=== PATIENT | female | born 1995 | race Caucasian/White ===

== ENCOUNTER 2016-04-29 07:21 | Emergency (ER) | payer OTHER ==
[~2016-04-29] VITALS: Ht 162.6 cm; Wt 97.9 kg
[2016-04-29 07:24] VITALS: BP 123/70; PULSE 82; RESP 16; TEMP 98.6; O2SAT 100
[2016-04-29] MEDS ORDERED: IBUPROFEN 600 MG TAB PO ONE (08:30)
--- NOTE | 2016-04-29 08:36 | PD ---
HPI Chief Complaint: Pain: Acute or Chronic Time Seen by Provider: 08:13 Travel History International Travel<30 days: No Contact w/Intl Traveler<30days: No Traveled to known affect area: No History of Present Illness HPI Patient is a 20 year old female who comes in complaining of pain to both of her hands for 4 months. 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 She has tried taking Tylenol for pain, but says it does not help much. She says her significant other who works at the same job was having the same issue a few months ago and was given hand splints and a note for work and now is feeling better. She denies any injuries to her hands. She denies numbness or tingling to her hands. PFS Past Medical History Asthma: Yes Cancer: No Cardiovascular Problems: No Diabetes: No Diminished Hearing: No Gastrointestinal Disorders: Yes (gallstones 02/2015) Genitourinary: No Hepatitis: No Hiatal Hernia: No Hypertension: No Immune Disorder: No Inguinal Hernia: Yes Medical other: No Musculoskeletal: Yes (SPINAL DEFORMITY AT ) Neurologic: Yes (EPILEPSY-HAVENT HAD SEIZURE IN YEARS) Psychiatric: No Reproductive: No Respiratory: Yes (ASTHMA) Immunizations Current: Yes Seizures: Yes Thyroid Disease: No Tetanus Vaccination: < 5 Years ?: Not : 0 Past Surgical History Abdominal Surgery: Yes (HERNIA REPAIR ) AICD: No Cholecystectomy: Yes Joint Replacement: No Pacemaker: No Other Surgery: Yes Social History Alcohol Use: Yes (RARELY) Tobacco Use: Yes (1/2 PPD) Substance Use: No Allergies-Medications (Allergen,Severity, Reaction): Coded Allergies: Phenobarbital (Verified Allergy, Severe, HIVES, 06/13/15) Reported Meds & Prescriptions Reported Meds & Active Scripts Active Active Prescriptions or Reported Medications Unobtainable Review of Systems General / Constitutional: No: Fever, Chills HENT: No: Headaches Cardiovascular: No: Chest Pain or Discomfort Gastrointestinal: No: Nausea, Vomiting Musculoskeletal: Positive: Myalgias, Arthralgias Skin: No Change in Pigmentation Neurologic: No: Paresthesia, Sensory Disturbance Physical Exam Narrative GENERAL: Awake and alert in no acute distress SKIN: Warm and dry. HEAD: Atraumatic. Normocephalic. EYES: Pupils equal and round. No scleral icterus. NECK: Trachea midline. No JVD. CARDIOVASCULAR: Regular rate and rhythm. No murmur appreciated. RESPIRATORY: No accessory muscle use. Clear to auscultation. Breath sounds equal bilaterally. MUSCULOSKELETAL: No obvious deformities. No clubbing. No cyanosis. No edema. Radial pulses intact. Pain with wrist movement bilaterally. NEUROLOGICAL: Awake and alert. No obvious cranial nerve deficits. Motor grossly within normal limits. Normal speech. Radial, ulnar, median nerve intact. Data Data Last Documented VS Vital Signs Date Time Temp Pulse Resp B/P Pulse Ox O2 Delivery O2 Flow Rate FiO2 04/29/16 07:24 98.6 82 16 123/70 100 Orders Ibuprofen (Motrin) (04/29/16 08:30) Splint Or Brace Apply/Monitor (04/29/16 08:29) [facility] Medical Decision Making Medical Screen Exam Complete: Yes Emergency Medical Condition: Yes Medical Record Reviewed: Yes Differential Diagnosis Tendinitis versus carpal tunnel syndrome versus wrist sprain Narrative Course Patient is a 20-year-old female comes in complaining of bilateral hand pain for a few months. Exam shows pain with movement of her fingers and wrist. Pain is likely secondary to tendinitis and overuse of her hands. Patient given ibuprofen. Advised to take Ativan as needed for pain. Given 2 below wrist splints, advised to wear these as needed for pain. Advised follow-up with her primary care doctor. Advised to return to the ED as needed for any worsening symptoms. Diagnosis Primary Impression: Tendonitis Patient Instructions: General Instructions, Tendinitis (ED) Additional Instructions: Follow up with a primary care physician. Return to the ED as needed for any worsening symptoms. Wear the splints for comfort. Take Ibuprofen as needed for pain. Scripts No Active Prescriptions or Reported Meds Disposition: 01 DISCHARGE HOME Condition: Stable Sara Hogan MD Apr 29, 2016 08:36
== END 2016-04-29 08:52 | disposition home or self-care (01) ==
LOC: PHED 07:21 → PHEFT 08:52
DX: M77.9 Enthesopathy, unspecified (principal); M79.642 Pain in left hand; M79.641 Pain in right hand; F17.200 Nicotine dependence, unspecified, uncomplicated; Z87.09 Personal history of other diseases of the respiratory system; Z87.19 Personal history of other diseases of the digestive system; Z87.39 Personal history of other diseases of the musculoskeletal system and connective tissue; Z86.69 Personal history of other diseases of the nervous system and sense organs
CPT/HCPCS: 99283; L3908

== ENCOUNTER 2016-09-22 19:34 | Emergency (ER) | payer OTHER ==
[~2016-09-22] VITALS: Ht 162.6 cm; Wt 96.6 kg
[2016-09-22 19:38] VITALS: BP 125/79; PULSE 94; RESP 16; TEMP 98.1; O2SAT 99
--- NOTE | 2016-09-22 20:01 | PD ---
HPI Chief Complaint: Pain: Acute or Chronic Time Seen by Provider: 19:45 Travel History International Travel<30 days: No Contact w/Intl Traveler<30days: No Traveled to known affect area: No History of Present Illness HPI 21-year-old female presents to the emergency room for evaluation of right wrist pain that has been ongoing for the past several months but worsened yesterday. Patient denies trauma or injury. States she has history of tendinitis from overusing her wrist at work. Patient types all day. States she was seen in the ER previously for this and given splints which have been helping until last night. Pain is localized to the volar right wrist with radiation up her arm. Pain is worse with range of motion and palpation. She to Tylenol and Motrin last night without any relief in symptoms. Denies paresthesias. She has not followed up with primary care physician or orthopedic physician for this issue. PFSH Past Medical History Asthma: Yes Cancer: No Cardiovascular Problems: No Diabetes: No Diminished Hearing: No Gastrointestinal Disorders: Yes (gallstones 02/2015) Genitourinary: No Hepatitis: No Hiatal Hernia: No Hypertension: No Immune Disorder: No Inguinal Hernia: Yes Musculoskeletal: Yes (SPINAL DEFORMITY AT ) Neurologic: Yes (EPILEPSY-HAVENT HAD SEIZURE IN YEARS) Psychiatric: No Reproductive: No Respiratory: Yes (ASTHMA) Immunizations Current: Yes Seizures: Yes (7 RS SINCE LAST) Thyroid Disease: No Tetanus Vaccination: < 5 Years Influenza Vaccination: No ?: Not LMP: 05-18-17 : 0 Past Surgical History Abdominal Surgery: Yes (HERNIA REPAIR INFANT) AICD: No Cholecystectomy: Yes Joint Replacement: No Pacemaker: No Other Surgery: Yes Social History Alcohol Use: Yes (RARELY) Tobacco Use: Yes (1/2 PK) Substance Use: No Allergies-Medications (Allergen,Severity, Reaction): Coded Allergies: Phenobarbital (Verified Allergy, Severe, HIVES, 09/22/16) Reported Meds & Prescriptions Reported Meds & Active Scripts Active No Active Prescriptions or Reported Medications Review of Systems Except as stated in HPI: all other systems reviewed are Neg Physical Exam Narrative GENERAL: Well-nourished, well-developed female in no acute distress. Afebrile. Ambulatory. SKIN: Focused skin assessment warm/dry. No erythema or ecchymosis. HEAD: Normocephalic. EYES: No scleral icterus. No injection or drainage. NECK: Supple, trachea midline. No JVD or lymphadenopathy. CARDIOVASCULAR: Regular rate and rhythm without murmurs, gallops, or rubs. RESPIRATORY: Breath sounds equal bilaterally. No accessory muscle use. EXTREMITY: Right wrist tender to palpation on the volar aspect. Limited range of motion in the wrist secondary to pain. No edema. Normal opposition of thumb. Distal extremity neurovascularly intact with intact two point discrimination. Negative Tinel and Phalen sign. Data Data Last Documented VS Vital Signs Date Time Temp Pulse Resp B/P Pulse Ox O2 Delivery O2 Flow Rate FiO2 09/22/16 19:45 09/22/16 19:38 98.1 94 16 99 Room Air MDM Medical Decision Making Medical Screen Exam Complete: Yes Emergency Medical Condition: Yes Medical Record Reviewed: Yes Differential Diagnosis Tendinitis, carpal tunnel syndrome, tenosynovitis Narrative Course 21-year-old female presents to the emergency room for evaluation of right wrist pain from overuse injury for the past several months that worsened tonight without any trauma or injury. Patient was seen for this previously and has not followed up with a primary care physician or orthopedic surgeon. Physical exam is unremarkable. Extreme tenderness to palpation over the volar right wrist. No erythema, ecchymosis, or edema. 2+ radial pulse. Radial, ulnar, and median nerve intact. Patient was told to follow-up with an orthopedic surgeon for intra-articular steroid injections and possible surgery if symptoms persist. Will return for urgent/emergent conditions. She understands and agrees to plan. Diagnosis Primary Impression: Tendonitis Referrals: Primary Care Physician Patient Instructions: General Instructions, Tendinitis (ED) Additional Instructions: Rest and drink plenty of fluids. Use splint as needed for pain. Take ibuprofen with food as directed, as needed for pain. Apply ice to the affected area for 20 minutes at a time, as needed for pain and swelling. Follow-up with a primary care physician. Return to the emergency room for worsening symptoms. Scripts No Active Prescriptions or Reported Meds Disposition: 01 DISCHARGE HOME Condition: Stable Lizzeth Angela Sep 22, 2016 20:01
[2016-09-22] MEDS ORDERED: IBUP-232 PO (20:13)
== END 2016-09-22 20:22 | disposition home or self-care (01) ==
LOC: PHEFT 19:34
DX: M77.9 Enthesopathy, unspecified (principal); J45.909 Unspecified asthma, uncomplicated; F17.210 Nicotine dependence, cigarettes, uncomplicated
CPT/HCPCS: 99283

== ENCOUNTER 2016-12-22 08:14 | Emergency (ER) | payer OTHER ==
[~2016-12-22 08:14] MED LIST: IBUP-232 PO
[2016-12-22 08:16] VITALS: BP 122/68; PULSE 92; RESP 16; TEMP 98.3; O2SAT 98
--- NOTE | 2016-12-22 08:37 | PD ---
HPI Chief Complaint: Musculoskeletal Complaint Time Seen by Provider: 08:22 Travel History International Travel<30 days: No Contact w/Intl Traveler<30days: No Traveled to known affect area: No History of Present Illness HPI Patient is a 21-year-old female who presents to emergency room for evaluation of bilateral hip and leg cramping. She reports that for the past 3 days, she has been having intermittent cramping to her calves bilaterally. Reports that she has been trying to keep up with electrolytes and has been taking plenty of water, patient reports concern that a UTI may be causing this. Patient also complains of bilateral hip pain with ambulation, denies any trauma, denies any fever/chills. Patient denies any chest pain or shortness of breath, denies any recent travels/trips. Denies history of PE/DVT. No other c/o. PFSH Past Medical History Asthma: Yes Cancer: No Cardiovascular Problems: No Diabetes: No Diminished Hearing: No Gastrointestinal Disorders: Yes (gallstones 02/2015) Genitourinary: No Hepatitis: No Hiatal Hernia: No Hypertension: No Immune Disorder: No Inguinal Hernia: Yes Musculoskeletal: Yes (SPINAL DEFORMITY AT ) Neurologic: Yes (EPILEPSY-HAVENT HAD SEIZURE IN YEARS) Psychiatric: No Reproductive: No Respiratory: Yes (ASTHMA) Immunizations Current: Yes Seizures: Yes (7 RS SINCE LAST) Thyroid Disease: No Influenza Vaccination: No ?: Unknown LMP: 09/2016 : 0 Past Surgical History Abdominal Surgery: Yes (HERNIA REPAIR INFANT) AICD: No Cholecystectomy: Yes Joint Replacement: No Pacemaker: No Other Surgery: Yes Social History Alcohol Use: Yes (RARELY) Tobacco Use: No Substance Use: No Allergies-Medications (Allergen,Severity, Reaction): Coded Allergies: phenobarbital (Unverified Allergy, Severe, HIVES, 12/22/16) Reported Meds & Prescriptions Reported Meds & Active Scripts Active Ibuprofen 600 Mg Tab 600 Mg PO Q6H PRN Review of Systems General / Constitutional: No: Fever Eyes: No: Visual changes HENT: No: Headaches Cardiovascular: No: Chest Pain or Discomfort Respiratory: No: Shortness of Breath Gastrointestinal: No: Abdominal Pain Genitourinary: No: Dysuria Musculoskeletal: Positive: Cramping, No: Pain Skin: No Rash Neurologic: No: Weakness Psychiatric: No: Depression Endocrine: No: Polydipsia Hematologic/Lymphatic: No: Easy Bruising Physical Exam Narrative GENERAL: Well-nourished, well-developed patient. SKIN: Focused skin assessment warm/dry. HEAD: Normocephalic. EYES: No scleral icterus. No injection or drainage. NECK: Supple, trachea midline. No JVD or lymphadenopathy. CARDIOVASCULAR: Regular rate and rhythm without murmurs, gallops, or rubs. RESPIRATORY: Breath sounds equal bilaterally. No accessory muscle use. GASTROINTESTINAL: Abdomen soft, non-tender, nondistended. MUSCULOSKELETAL: No cyanosis, or edema. Patient with normal range of motion to all extremities, patient ambulating the emergency room with normal gait, patient with negative Homans sign BACK: Nontender without obvious deformity. No CVA tenderness. Data Data Last Documented VS Vital Signs Date Time Temp Pulse Resp B/P (MAP) Pulse Ox O2 Delivery O2 Flow Rate FiO2 12/22/16 08:16 98.3 92 16 122/68 (86) 98 Orders Orders Ed Urine Pregnancytest Poc (12/22/16 08:22) Basic Metabolic Panel (Bmp) (12/22/16 08:30) Urinalysis - C+S If Indicated (12/22/16 08:30) Creatine Kinase (Cpk) (12/22/16 08:30) Ibuprofen (Motrin) (12/22/16 08:45) Labs Laboratory Tests Test 12/22/16 08:25 12/22/16 08:35 Urine Collection Type CLEAN CATCH Urine Color YELLOW Urine Turbidity SLIGHT Urine pH 6.0 Urine Specific [place] 1.021 Urine Protein NEG mg/dL Urine Glucose (UA) NEG mg/dL Urine Ketones NEG mg/dL Urine Occult Blood NEG Urine Nitrite NEG Urine Bilirubin NEG Urine Leukocyte Esterase NEG Urine Squamous Epithelial Cells 6-8 /hpf Urine Amorphous Sediment MOD Microscopic Urinalysis Comment CULT NOT INDICATED Urine Collection Time 0828 Blood Urea Nitrogen 11 MG/DL Creatinine 0.78 MG/DL Random Glucose 92 MG/DL Calcium Level 8.7 MG/DL Sodium Level 138 MEQ/L Potassium Level 4.0 MEQ/L Chloride Level 108 MEQ/L Carbon Dioxide Level 22.5 MEQ/L Anion Gap 8 MEQ/L Estimat Glomerular Filtration Rate 92 ML/MIN Total Creatine Kinase 68 U/L MDM Medical Decision Making Medical Screen Exam Complete: Yes Emergency Medical Condition: Yes Interpretation(s) Vital Signs Date Time Temp Pulse Resp B/P (MAP) Pulse Ox O2 Delivery O2 Flow Rate FiO2 12/22/16 08:16 98.3 92 16 122/68 (86) 98 Differential Diagnosis Differential includes electrolyte abnormality, UTI, arthritis, DVT though unlikely as patient has no risk factors Narrative Course 21-year-old female who presents to emergency room for complaints of intermittent leg cramping b/l as well as possible UTI. Reports that symptoms have been ongoing and intermittent for the past few days. Patient request that her electrolytes be checked and that she be checked for a UTI Patient with no chest pain or shortness of breath, no history of PE or DVT. She currently is not on control this time. She is not tachycardic or hypoxic, patient low risk for PE or DVT BMP and ck total and ua ordered. Laboratory Tests Test 12/22/16 08:25 12/22/16 08:35 Urine Collection Type CLEAN CATCH Urine Color YELLOW (YELLW/STRAW) Urine Turbidity SLIGHT (CLEAR) Urine pH 6.0 (5.0-8.5) Urine Specific [place] 1.021 (1.002-1.035) Urine Protein NEG mg/dL (NEG-TRACE) Urine Glucose (UA) NEG mg/dL (NEG) Urine Ketones NEG mg/dL (NEG) Urine Occult Blood NEG (NEG) Urine Nitrite NEG (NEG) Urine Bilirubin NEG (NEG) Urine Leukocyte Esterase NEG (NEG) Urine Squamous Epithelial Cells 6-8 /hpf (0-5) Urine Amorphous Sediment MOD Microscopic Urinalysis Comment CULT NOT INDICATED Urine Collection Time 0828 Blood Urea Nitrogen 11 MG/DL (7-18) Creatinine 0.78 MG/DL (0.50-1.00) Random Glucose 92 MG/DL (74-106) Calcium Level 8.7 MG/DL (8.5-10.1) Sodium Level 138 MEQ/L (136-145) Potassium Level 4.0 MEQ/L (3.5-5.1) Chloride Level 108 MEQ/L (98-107) Carbon Dioxide Level 22.5 MEQ/L (21.0-32.0) Anion Gap 8 MEQ/L (5-15) Estimat Glomerular Filtration Rate 92 ML/MIN (>89) Total Creatine Kinase 68 U/L (26-192) I reviewed all labs and studies with patient in detail, discussed need for stretching her calf muscles. She will follow up with her pcp and will return to ER as needed Diagnosis Primary Impression: Leg cramping Patient Instructions: General Instructions Additional Instructions: Please follow up with your primary care doctor Return to ER as needed or if symptoms return Med/Other Pt SpecificInfo: Prescription(s) given Scripts Ibuprofen (Ibuprofen) 600 Mg Tab 600 MG PO Q6H Y for Pain/Inflammation, #40 TAB 0 Refills Prov: Fabi George DO 12/22/16 Disposition: 01 DISCHARGE HOME Condition: Stable Fabi George DO Dec 22, 2016 08:37
[2016-12-22 08:41] LABS: BLOOD, URINE NEG (NEG); GLUCOSE,URINE NEG (NEG); KETONE, URINE NEG (NEG); NITRITE,URINE NEG (NEG)
[2016-12-22 08:45] LABS: METHOD OF COLLECTION CLEAN CATCH; URINE COLOR YELLOW (YELLW/STRAW)
[2016-12-22] MEDS ORDERED: IBUPROFEN 600 MG TAB PO ONE (08:45)
[2016-12-22 08:46] LABS: COMMENT (UR) CULT NOT INDICATED; CULTURE IF INDICATED CULT NOT INDICATED
[2016-12-22] MEDS ORDERED: IBUP-232 PO (08:51)
[2016-12-22 08:52] LABS: BICARBONATE 22.5 MEQ/L (21.0-32.0)
== END 2016-12-22 09:09 | disposition home or self-care (01) ==
LOC: PHED 08:14
DX: R25.2 Cramp and spasm (principal)
CPT/HCPCS: 80048; 81001; 82550; 84703; 99283

== ENCOUNTER 2017-03-25 13:59 | Emergency (ER) | payer OTHER ==
[~2017-03-25] VITALS: Ht 162.6 cm; Wt 103.0 kg
[2017-03-25 14:06] VITALS: BP 113/66; PULSE 88; RESP 16; TEMP 97.9; O2SAT 97
[2017-03-25 14:21] LABS: BILIRUBIN, URINE NEG (NEG); BLOOD, URINE NEG (NEG); GLUCOSE,URINE NEG (NEG); KETONE, URINE NEG (NEG); NITRITE,URINE POS (NEG); URINE LEUKOCYTE ESTERASE TRACE (NEG)
[2017-03-25 14:23] LABS: URINE COLOR YELLOW (YELLW/STRAW)
[2017-03-25 14:25] LABS: BACTERIA, URINE MANY /hpf; RBC, URINE 0-2 /hpf (0-3); SQUAMOUS EPITHELIAL CELL URINE 0-5 /hpf (0-5)
[2017-03-25] MEDS ORDERED: SODIUM CHLOR 0.9% 1000 ML INJ 1,000 ML IV SCH (14:51)
[2017-03-25] MEDS ORDERED: ONDANSETRON HCL 4 MG/2 ML VIAL IVP ONE (15:00)
[2017-03-25] MEDS ORDERED: HYDROmorphone HCL PF 2 MG/ML VIAL IV PUSH ONE (15:00)
[2017-03-25] MEDS ORDERED: SODIUM CHLORIDE 0.9% FLUSH 10 ML FLUSH IV FLUSH PRN (15:00)
--- NOTE | 2017-03-25 15:02 | PD ---
HPI Chief Complaint: GI Complaint Time Seen by Provider: 14:51 Travel History International Travel<30 days: No Contact w/Intl Traveler<30days: No Traveled to known affect area: No History of Present Illness HPI 21-year-old female patient with history of cholecystectomy in the past, presents to the ER today for 5 days history of right upper quadrant abdominal pains which she states currently rates it as 6 out of 10. She has been nauseous but denies any vomiting, diarrhea, fevers, urinary symptoms, or any other symptoms. She does not know any exacerbating or alleviating factors. Modifying Factors: None Associated Signs & Symptoms: Right upper quadrant abdominal pains Risk Factors: None PFSH Past Medical History Asthma: Yes Cancer: No Cardiovascular Problems: No Diabetes: No Diminished Hearing: No Gastrointestinal Disorders: Yes (gallstones 02/2015) Genitourinary: No Hepatitis: No Hiatal Hernia: No Hypertension: No Immune Disorder: No Inguinal Hernia: Yes Musculoskeletal: Yes (SPINAL DEFORMITY AT ) Neurologic: Yes (EPILEPSY-HAVENT HAD SEIZURE IN YEARS) Psychiatric: No Reproductive: No Respiratory: Yes (ASTHMA) Immunizations Current: Yes Seizures: Yes (7 RS SINCE LAST) Thyroid Disease: No Influenza Vaccination: No ?: Not LMP: 1.5 WKS AGO : 0 Past Surgical History Abdominal Surgery: Yes (HERNIA REPAIR INFANT) AICD: No Cholecystectomy: Yes Joint Replacement: No Pacemaker: No Other Surgery: Yes Social History Alcohol Use: Yes (RARELY) Tobacco Use: No (ECIG) Substance Use: No Allergies-Medications (Allergen,Severity, Reaction): Coded Allergies: phenobarbital (Unverified Allergy, Severe, HIVES, 03/25/17) Reported Meds & Prescriptions Reported Meds & Active Scripts Active No Active Prescriptions or Reported Medications Review of Systems Except as stated in HPI: all other systems reviewed are Neg Physical Exam Narrative GENERAL: Well-developed young female patient currently in mild distress. Awake and oriented 3. SKIN: Focused skin assessment warm/dry. HEAD: Atraumatic. Normocephalic. EYES: Pupils equal and round. No scleral icterus. No injection or drainage. ENT: No nasal bleeding or discharge. Mucous membranes pink and moist. NECK: Trachea midline. No JVD. CARDIOVASCULAR: Regular rate and rhythm. No murmur appreciated. RESPIRATORY: No accessory muscle use. Clear to auscultation. Breath sounds equal bilaterally. GASTROINTESTINAL: Abdomen soft, right upper quadrant tenderness without guarding or rebound, nondistended. Hepatic and splenic margins not palpable. MUSCULOSKELETAL: No obvious deformities. No clubbing. No cyanosis. No edema. NEUROLOGICAL: Awake and alert. No obvious cranial nerve deficits. Motor grossly within normal limits. Normal speech. PSYCHIATRIC: Appropriate mood and affect; insight and judgment normal. Data Data Last Documented VS Vital Signs Date Time Temp Pulse Resp B/P (MAP) Pulse Ox O2 Delivery O2 Flow Rate FiO2 03/25/17 15:34 18 03/25/17 15:09 81 141/68 (92) 98 Room Air 03/25/17 14:06 97.9 Orders Orders Urinalysis - C+S If Indicated (03/25/17 14:04) Ed Urine Pregnancytest Poc (03/25/17 14:04) Urine Culture (03/25/17 14:00) Complete Blood Count With Diff (03/25/17 14:51) Comprehensive Metabolic Panel (03/25/17 14:51) Lipase (03/25/17 14:51) Ct Abd/Pel W Iv Contrast(Rout) (03/25/17 14:51) Iv Access Insert/Monitor (03/25/17 14:51) Ecg Monitoring (03/25/17 14:51) Oximetry (03/25/17 14:51) Ondansetron Inj (Zofran Inj) (03/25/17 15:00) Sodium Chlor 0.9% 1000 Ml Inj (Ns 1000 M (03/25/17 14:51) Sodium Chloride 0.9% Flush (Ns Flush) (03/25/17 15:00) Hydromorphone Pf Inj (Dilaudid Pf Inj) (03/25/17 15:00) Iohexol 350 Inj (Omnipaque 350 Inj) (03/25/17 15:57) Ed Discharge Order (03/25/17 16:56) Labs Laboratory Tests Test 03/25/17 14:00 03/25/17 15:02 Urine Color YELLOW Urine Turbidity HAZY Urine pH 6.0 Urine Specific [place] 1.021 Urine Protein NEG mg/dL Urine Glucose (UA) NEG mg/dL Urine Ketones NEG mg/dL Urine Occult Blood NEG Urine Nitrite POS Urine Bilirubin NEG Urine Leukocyte Esterase TRACE Urine RBC 0-2 /hpf Urine WBC 6-8 /hpf Urine Squamous Epithelial Cells 0-5 /hpf Urine Bacteria MANY /hpf Microscopic Urinalysis Comment CULTURE INDICATED White Blood Count 10.0 TH/MM3 Red Blood Count 4.79 MIL/MM3 Hemoglobin 14.2 GM/DL Hematocrit 41.8 % Mean Corpuscular Volume 87.4 FL Mean Corpuscular Hemoglobin 29.6 PG Mean Corpuscular Hemoglobin Concent 33.8 % Red Cell Distribution Width 11.8 % Platelet Count 294 TH/MM3 Mean Platelet Volume 7.8 FL Neutrophils (%) (Auto) 65.0 % Lymphocytes (%) (Auto) 28.8 % Monocytes (%) (Auto) 3.8 % Eosinophils (%) (Auto) 1.9 % Basophils (%) (Auto) 0.5 % Neutrophils # (Auto) 6.4 TH/MM3 Lymphocytes # (Auto) 2.9 TH/MM3 Monocytes # (Auto) 0.4 TH/MM3 Eosinophils # (Auto) 0.2 TH/MM3 Basophils # (Auto) 0.1 TH/MM3 CBC Comment DIFF FINAL Differential Comment Blood Urea Nitrogen 12 MG/DL Creatinine 0.80 MG/DL Random Glucose 127 MG/DL Total Protein 7.3 GM/DL Albumin 3.5 GM/DL Calcium Level 8.8 MG/DL Alkaline Phosphatase 93 U/L Aspartate Amino Transf (AST/SGOT) 26 U/L Alanine Aminotransferase (ALT/SGPT) 65 U/L Total Bilirubin 0.4 MG/DL Sodium Level 141 MEQ/L Potassium Level 4.1 MEQ/L Chloride Level 104 MEQ/L Carbon Dioxide Level 25.7 MEQ/L Anion Gap 8 MEQ/L Estimat Glomerular Filtration Rate 90 ML/MIN Lipase 86 U/L [facility] Medical Decision Making Medical Screen Exam Complete: Yes Emergency Medical Condition: Yes Medical Record Reviewed: Yes Interpretation(s) Laboratory Tests Test 03/25/17 14:00 03/25/17 15:02 Urine Turbidity HAZY (CLEAR) Urine Nitrite POS (NEG) Urine Leukocyte Esterase TRACE (NEG) Urine WBC 6-8 /hpf (0-5) Urine Bacteria MANY /hpf (NONE) Random Glucose 127 MG/DL (74-106) Alanine Aminotransferase (ALT/SGPT) 65 U/L (10-53) Last 24 hours Impressions Abdomen/Pelvis CT 03/25/17 0081 Signed Impressions: Service Date/Time: Saturday, March 25, 2017 15:49 - CONCLUSION: 1. No acute CT findings to explain patient's abdominal pain. 2. Normal appendix. No radiopaque renal calculi or obstructive uropathy. 3. Prominent decreased hepatic attenuation consistent with hepatic steatosis. Hector Blair MD Differential Diagnosis Right upper quadrant abdominal pains: Hepatitis versus diverticulitis versus gastroenteritis versus pyelonephritis versus renal colic versus other acute intra-abdominal processes Narrative Course UA does show some signs of UTI. Her liver enzymes are fairly unremarkable. CAT scan did not show any signs of acute intra-abdominal processes. At this point, my plan would be to release her with symptomatic relief or pain and follow-up to primary care physician. We will also treat her UTI. Return for worsening in symptoms as necessary. The plan has been discussed with her and she states understanding. Diagnosis Primary Impression: Abdominal pain Additional Impression: UTI (urinary tract infection) Med/Other Pt SpecificInfo: Prescription(s) given Scripts Ibuprofen (Ibuprofen) 600 Mg Tab 600 MG PO Q6H Y for Pain/Inflammation, #20 TAB 0 Refills Prov: Savanna Ag MD 03/25/17 Ondansetron Odt (Zofran Odt) 4 Mg Tab 4 MG SL Q6HR Y for Nausea/Vomiting, #7 TAB 0 Refills Prov: Savanna Ag MD 03/25/17 Nitrofurantoin Monohydrate Macrocrystals (Macrobid) 100 Mg Cap 100 MG PO BID for Infection for 7 Days, #14 CAP 0 Refills Prov: Savanna Ag MD 03/25/17 Disposition: 01 DISCHARGE HOME Condition: Stable Savanna Ag MD Mar 25, 2017 15:02
[2017-03-25 15:06] LABS: AUTOMATED NEUTROPHIL # 6.4 TH/MM3 (1.8-7.7); BASOPHIL # 0.1 TH/MM3 (0-0.2); BASOPHIL % 0.5 % (0.0-2.0); EOSINOPHIL # 0.2 TH/MM3 (0-0.4); EOSINOPHIL % 1.9 % (0.0-4.0); HEMATOCRIT 41.8 % (35.0-46.0); HEMOGLOBIN 14.2 GM/DL (11.6-15.3); LYMPH % 28.8 % (9.0-44.0); LYMPHOCYTE # 2.9 TH/MM3 (1.0-4.8); MEAN CELL VOLUME 87.4 FL (80.0-100.0); MEAN CORPUSCULAR HEMOGLOBIN 29.6 PG (27.0-34.0); MEAN CORPUSCULAR HGB CONC 33.8 % (32.0-36.0); MEAN PLATELET VOLUME 7.8 FL (7.0-11.0); MONO % 3.8 % (0.0-8.0); MONOCYTE # 0.4 TH/MM3 (0-0.9); PLATELET COUNT 294 TH/MM3 (150-450); RED BLOOD COUNT 4.79 MIL/MM3 (4.00-5.30); RED CELL DISTRIBUTION WIDTH 11.8 % (11.6-17.2)
[2017-03-25 15:09] VITALS: BP 141/68; PULSE 81; RESP 18; O2SAT 98
[2017-03-25 15:28] LABS: BLOOD UREA NITROGEN 12 MG/DL (7-18); CHLORIDE 104 MEQ/L (98-107); GLOMERULAR FILTRATION RATE 90 ML/MIN (>89); GLUCOSE,RANDOM 127 MG/DL (74-106); SODIUM (NA) 141 MEQ/L (136-145)
[2017-03-25 15:34] VITALS: RESP 18
[2017-03-25 15:38] LABS: ALBUMIN 3.5 GM/DL (3.4-5.0); LIPASE 86 U/L (73-393)
[2017-03-25 15:39] LABS: BICARBONATE 25.7 MEQ/L (21.0-32.0); CALCIUM 8.8 MG/DL (8.5-10.1)
[2017-03-25 15:41] LABS: ALT (GPT) 65 U/L (10-53); AST (GOT) 26 U/L (15-37)
[2017-03-25 15:43] LABS: TOTAL BILIRUBIN ADULT 0.4 MG/DL (0.2-1.0); TOTAL PROTEIN 7.3 GM/DL (6.4-8.2)
[2017-03-25 15:44] LABS: ALKALINE PHOSPHATASE 93 U/L (45-117)
[2017-03-25] MEDS ORDERED: IOHEXOL 350 MG/ML 10 ML VIAL (for RAD DIAG) IVCONTRAST ONE (15:57)
--- NOTE | 2017-03-25 16:30 | RADRPT ---
EXAM DATE/TIME: 03/25/2017 15:49 [place] COMPARISON: CT ABDOMEN & PELVIS W/O CONTRAST, June 13, 2015, 18:02. INDICATIONS : Right upper quadrant pain. IV CONTRAST: 95 cc Omnipaque 350 (iohexol) IV ORAL CONTRAST: No oral contrast ingested. RADIATION DOSE: 21.07 CTDIvol (mGy) MEDICAL HISTORY : Epilepsy. SURGICAL HISTORY : Cholecystectomy. Hernia repair. ENCOUNTER: Initial ACUITY: 4 - 6 days PAIN SCALE: 6/10 LOCATION: Right upper quadrant TECHNIQUE: Volumetric scanning of the abdomen and pelvis was performed. Using automated exposure control and adjustment of the mA and/or kV according to patient size, radiation dose was kept as low as reasonably achievable to obtain optimal diagnostic quality images. DICOM format image data is av ailable electronically for review and comparison. FINDINGS: LOWER LUNGS: The visualized lower lungs are clear. LIVER: Diffusely decreased hepatic density without evidence for volume loss or focal mass. No sig nificant intrahepatic ductal dilatation. Gallbladder is surgically absent. SPLEEN: Normal size without lesion. PANCREAS: Within normal limits. KIDNEYS: Normal in size and shape. There is no mass, stone or hydronephrosis. ADRENAL GLANDS: Within normal limits. VASCULAR: There is no aortic aneurysm. BOWEL/MESENTERY: The stomach, small bowel, and colon demonstrate no acute abnormality. Appendix a ppears normal. There is no free intraperitoneal air or fluid. ABDOMINAL WALL: Within normal limits. RETROPERITONEUM: There is no lymphadenopathy. BLADDER: No wall thickening or mass. REPRODUCTIVE: Right ovary appears slightly prominent measuring up to 3.3 cm with multiple cysts. This is improved from prior examination in or the right ovary demonstrate a 4.3 cm cyst. INGUINAL: There is no lymphadenopathy or hernia. MUSCULOSKELETAL: Within normal limits for patient age. CONCLUSION: 1. No acute CT findings to explain patient's abdominal pain. 2. Normal appendix. No radiopaque renal calculi or obstructive uropathy. 3. Prominent decreased hepatic attenuation consistent with hepatic steatosis. Hector Blair MD on March 25, 2017 at 16:22 Board Certified Radiologist. This report was verified electronically.
[2017-03-25] MEDS ORDERED: MACR100C2 PO (16:59)
[2017-03-25] MEDS ORDERED: ZOFR4TAB3 SL (16:59)
[2017-03-25] MEDS ORDERED: IBUP-232 PO (16:59)
[2017-03-25 17:03] VITALS: BP 120/67
== END 2017-03-25 17:07 | disposition home or self-care (01) ==
LOC: PHED 13:59
DX: R10.11 Right upper quadrant pain (principal); N39.0 Urinary tract infection, site not specified; B96.20 Unspecified Escherichia coli [E. coli] as the cause of diseases classified elsewhere; J45.909 Unspecified asthma, uncomplicated
CPT/HCPCS: 74177; 80053; 81001; 83690; 84703; 85025; 87077; 87086; 87186; 96361; 96374; 96375; 99285; J1170; J2405; J7030; Q9967

== ENCOUNTER 2017-04-01 09:51 | Emergency (ER) | payer OTHER ==
[~2017-04-01] VITALS: Ht 162.6 cm; Wt 103.0 kg
[~2017-04-01 09:51] MED LIST changes: +MACR100C2 PO; +ZOFR4TAB3 SL
[2017-04-01 09:56] VITALS: BP 124/75; PULSE 91; RESP 16; TEMP 98.4; O2SAT 97
[2017-04-01] MEDS ORDERED: NABU1TAB37 PO (10:44)
--- NOTE | 2017-04-19 09:29 | PD ---
HPI . Right-sided abdominal pain Chief Complaint: Abdominal Pain Time Seen by Provider: 10:14 Travel History International Travel<30 days: No Contact w/Intl Traveler<30days: No Traveled to known affect area: No History of Present Illness HPI This is a delayed dictation. Some specifics are not recalled. Patient presented with right-sided abdominal pain. He had been to the back for about 3 days. Pain rated 7/10. The patient had recently been seen on 03/25 for right-sided abdominal pain and had a complete workup including a CT scan of the abdomen which was negative. Lab workup was also negative with the exception of her UA which showed 6-8 white blood cells and many bacteria. She was discharged that day with a prescription for Macrobid. [facility] Past Medical History Asthma: Yes Cancer: No Cardiovascular Problems: No Diabetes: No Diminished Hearing: No Gastrointestinal Disorders: Yes (gallstones 02/2015) Genitourinary: No Hepatitis: No Hiatal Hernia: No Hypertension: No Immune Disorder: No Inguinal Hernia: Yes Medical other: No Musculoskeletal: Yes (SPINAL DEFORMITY AT ) Neurologic: Yes (EPILEPSY-HAVENT HAD SEIZURE IN YEARS) Psychiatric: No Reproductive: No Respiratory: Yes (ASTHMA) Immunizations Current: Yes Seizures: Yes (7 RS SINCE LAST) Thyroid Disease: No Tetanus Vaccination: Unknown ?: Unknown LMP: 2 WEEKS AGO : 0 Past Surgical History Abdominal Surgery: Yes (HERNIA REPAIR INFANT) AICD: No Cholecystectomy: Yes Joint Replacement: No Pacemaker: No Other Surgery: Yes Social History Alcohol Use: Yes (RARELY) Tobacco Use: No (ECIG) Substance Use: No Allergies-Medications (Allergen,Severity, Reaction): Coded Allergies: phenobarbital (Unverified Allergy, Severe, HIVES, 04/01/17) Reported Meds & Prescriptions Reported Meds & Active Scripts Active Nabumetone 500 Mg Tab 500 Mg PO BID Ibuprofen 600 Mg Tab 600 Mg PO Q6H PRN Macrobid (Nitrofurantoin Monoh/Nitrofur Macro) 100 Mg Cap 100 Mg PO BID 7 Days Review of Systems Except as stated in HPI: all other systems reviewed are Neg Cardiovascular: Positive: Chest Pain or Discomfort Gastrointestinal: Positive: Abdominal Pain Physical Exam Narrative GENERAL: Awake and alert and in no acute distress. SKIN: Warm and dry. HEAD: Normocephalic/atraumatic. EYES: Pupils are equal. Extraocular movements are intact. NECK: Normal range of motion. CARDIOVASCULAR: Regular rate and rhythm. RESPIRATORY: Nonlabored respirations. Lungs clear. Positive right-sided chest wall tenderness. MUSCULOSKELETAL: Atraumatic. NEUROLOGICAL: Nonfocal. PSYCHIATRIC: Appropriate mood and affect. Data Data Orders Orders Ed Discharge Order (04/01/17 10:45) [facility] Medical Decision Making Medical Screen Exam Complete: Yes Emergency Medical Condition: Yes Differential Diagnosis Differential diagnosis of chest pain includes but is not limited to musculoskeletal pain, pulmonary embolism, acute coronary syndrome, pneumonia, pleurisy Narrative Course This patient presented with right sided lower chest/upper abdominal pain. She had positive chest wall tenderness on exam. She had just recently been worked up for right upper quadrant abdominal pain. Further laboratory tests were not done. She was discharged home on Relafen. Diagnosis Primary Impression: Chest wall pain Referrals: [facility] 3 days Patient Instructions: General Instructions, Chest Wall Pain (ED) Departure Forms: Tests/Procedures Scripts Nabumetone (Nabumetone) 500 Mg Tab 500 MG PO BID for Pain-Inflammation, #60 TAB 0 Refills Prov: Liz Awad MD 04/01/17 Disposition: 01 DISCHARGE HOME Condition: Stable Liz Awad MD Apr 19, 2017 09:29
== END 2017-04-01 10:58 | disposition home or self-care (01) ==
LOC: PHED 09:51
DX: R07.89 Other chest pain (principal); J45.909 Unspecified asthma, uncomplicated
CPT/HCPCS: 99283

== ENCOUNTER 2017-07-02 10:46 | Emergency (ER) | payer BC, OTHER ==
[~2017-07-02] VITALS: Ht 162.6 cm; Wt 105.0 kg
[~2017-07-02 10:46] MED LIST changes: +NABU1TAB37 PO; -ZOFR4TAB3 SL
[2017-07-02 11:01] VITALS: BP 159/82; PULSE 102; RESP 16; TEMP 98.4; O2SAT 96
[2017-07-02 11:12] LABS: BILIRUBIN, URINE NEG (NEG); BLOOD, URINE NEG (NEG); GLUCOSE,URINE NEG (NEG); KETONE, URINE NEG (NEG); NITRITE,URINE NEG (NEG); PH, URINE 5.5 (5.0-8.5); URINE COLOR YELLOW (YELLW/STRAW); URINE LEUKOCYTE ESTERASE NEG (NEG)
--- NOTE | 2017-07-02 11:20 | PD ---
HPI Chief Complaint: Flank/Kidney Pain Time Seen by Provider: 11:15 Travel History International Travel<30 days: No Contact w/Intl Traveler<30days: No Traveled to known affect area: No History of Present Illness HPI This 21-year-old female is complaining of what she has had urinary tract infections in the past and is concerned she might have one now. She has a history of gallbladder disease and has had a cholecystectomy. The pain is aggravated by certain movements. There is no numbness or tingling of the legs PFSH Past Medical History Asthma: Yes Cancer: No Cardiovascular Problems: No Diabetes: No Diminished Hearing: No Gastrointestinal Disorders: Yes (gallstones 02/2015) Genitourinary: No Hepatitis: No Hiatal Hernia: No Hypertension: No Immune Disorder: No Inguinal Hernia: Yes Musculoskeletal: Yes (SPINAL DEFORMITY AT ) Neurologic: Yes (EPILEPSY-HAVENT HAD SEIZURE IN YEARS) Psychiatric: No Reproductive: No Respiratory: Yes (ASTHMA) Immunizations Current: Yes Seizures: Yes (7 RS SINCE LAST) Thyroid Disease: No ?: Not LMP: 2 WEEKS : 0 Past Surgical History Abdominal Surgery: Yes (HERNIA REPAIR INFANT) AICD: No Cholecystectomy: Yes Joint Replacement: No Pacemaker: No Other Surgery: Yes Social History Alcohol Use: Yes (RARELY) Tobacco Use: No (ECIG) Substance Use: No Allergies-Medications (Allergen,Severity, Reaction): Coded Allergies: phenobarbital (Unverified Allergy, Severe, HIVES, 07/02/17) Reported Meds & Prescriptions Reported Meds & Active Scripts Active Nabumetone 500 Mg Tab 500 Mg PO BID Ibuprofen 600 Mg Tab 600 Mg PO Q6H PRN Macrobid (Nitrofurantoin Monoh/Nitrofur Macro) 100 Mg Cap 100 Mg PO BID 7 Days Review of Systems General / Constitutional: No: Fever, Chills Eyes: No: Diploplia, Blurred Vision HENT: No: Headaches, Vertigo Cardiovascular: No: Chest Pain or Discomfort, Palpitations Respiratory: No: Cough, Shortness of Breath Gastrointestinal: No: Nausea, Vomiting Genitourinary: Positive: Frequency, Flank Pain, No: Urgency Musculoskeletal: No: Myalgias Skin: No Rash, No Itching Hematologic/Lymphatic: No: Easy Bruising Physical Exam Narrative GENERAL: Well-developed female SKIN: Focused skin assessment warm/dry. HEAD: Atraumatic. Normocephalic. EYES: Pupils equal and round. No scleral icterus. No injection or drainage. ENT: No nasal bleeding or discharge. Mucous membranes pink and moist. NECK: Trachea midline. No JVD. CARDIOVASCULAR: Regular rate and rhythm. No murmur appreciated. RESPIRATORY: No accessory muscle use. Clear to auscultation. Breath sounds equal bilaterally. GASTROINTESTINAL: Abdomen soft, non-tender, nondistended. Hepatic and splenic margins not palpable. MUSCULOSKELETAL: No obvious deformities. No clubbing. No cyanosis. No edema. Tenderness of the back more prominent on the flank area. NEUROLOGICAL: Awake and alert. No obvious cranial nerve deficits. Motor grossly within normal limits. Normal speech. PSYCHIATRIC: Appropriate mood and affect; insight and judgment normal. Data Data Last Documented VS Vital Signs Date Time Temp Pulse Resp B/P (MAP) Pulse Ox O2 Delivery O2 Flow Rate FiO2 07/02/17 11:01 98.4 102 16 159/82 (107) 96 Orders Orders Urinalysis - C+S If Indicated (07/02/17 11:04) Ed Urine Pregnancytest Poc (07/02/17 11:04) Labs Laboratory Tests Test 07/02/17 11:05 Urine Collection Type CLEAN CATCH Urine Color YELLOW Urine Turbidity CLEAR Urine pH 5.5 Urine Specific [place] 1.010 Urine Protein NEG mg/dL Urine Glucose (UA) NEG mg/dL Urine Ketones NEG mg/dL Urine Occult Blood NEG Urine Nitrite NEG Urine Bilirubin NEG Urine Urobilinogen 0.2 MG/DL Urine Leukocyte Esterase NEG Urine RBC 0-3 /hpf Urine Squamous Epithelial Cells 0-5 /hpf Microscopic Urinalysis Comment CULT NOT INDICATED Urine Collection Time 11:05 [facility] Medical Decision Making Medical Screen Exam Complete: Yes Emergency Medical Condition: Yes Medical Record Reviewed: Yes Differential Diagnosis Differential includes UTI, pyelonephritis, musculoskeletal pain Narrative Course Urinalysis is negative for infection or blood. I believe this represents musculoskeletal pain Diagnosis Primary Impression: Musculoskeletal back pain Max Pedraza MD Jul 02, 2017 11:20
[2017-07-02 11:22] LABS: RBC, URINE 0-3 /hpf (0-3); SQUAMOUS EPITHELIAL CELL URINE 0-5 /hpf (0-5)
== END 2017-07-02 12:26 | disposition home or self-care (01) ==
LOC: PHED 10:46
DX: M54.9 Dorsalgia, unspecified (principal); J45.909 Unspecified asthma, uncomplicated; Z86.69 Personal history of other diseases of the nervous system and sense organs; F17.290 Nicotine dependence, other tobacco product, uncomplicated; Z79.899 Other long term (current) drug therapy; Z88.8 Allergy status to other drugs, medicaments and biological substances
CPT/HCPCS: 81001; 84703; 99283

== ENCOUNTER 2017-07-23 11:13 | Emergency (ER) | payer BC ==
[~2017-07-23] VITALS: Ht 162.6 cm; Wt 67.0 kg
[2017-07-23 11:17] VITALS: BP 157/76; PULSE 97; RESP 18; TEMP 98.3; O2SAT 97
[2017-07-23] MEDS ORDERED: MELO15TA20 PO (11:49)
--- NOTE | 2017-07-23 11:50 | PD ---
HPI Chief Complaint: Musculoskeletal Complaint Time Seen by Provider: 11:25 Travel History International Travel<30 days: No Contact w/Intl Traveler<30days: No Traveled to known affect area: No History of Present Illness HPI Is a 22-year-old woman who presents to the emergency department complaining of numbness and pain in both her hands. 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 She describes the pain mostly on the dorsum of both hands, worse with movement, radiates a little bit into the dorsum of the wrist. Symptoms been ongoing for the past couple weeks but worse over the past week or so. History Past Medical History Medical History: Denies Significant Hx Tetanus Vaccination: > 5 Years Influenza Vaccination: No LMP: 06/24/2017 : 0 Social History Alcohol Use: Yes (Occ.) Tobacco Use: No Allergies-Medications (Allergen,Severity, Reaction): Coded Allergies: phenobarbital (Unverified Allergy, Severe, HIVES, 07/23/17) Reported Meds & Prescriptions Reported Meds & Active Scripts Active No Active Prescriptions or Reported Medications Review of Systems Except as stated in HPI: all other systems reviewed are Neg Physical Exam Narrative GENERAL: Well-appearing 19-year-old woman, no acute distress. SKIN: Warm and dry. CARDIOVASCULAR: Warm and well perfused. RESPIRATORY: Normal rate and effort. MUSCULOSKELETAL: Normal appearance of both hands. Full range of motion. States she has some pain with moving the hands in their entirety. Radial/ulnar/ median nerve strength is intact. Negative Tinel's, (patient had pain at the site of tapping, not in the median nerve distribution), similarly, pain with flexing the wrist but no reproduction of paresthesias symptoms to suggest carpal tunnel. NEUROLOGICAL: Awake and alert. No gross deficits. Data Data Last Documented VS Vital Signs Date Time Temp Pulse Resp B/P (MAP) Pulse Ox O2 Delivery O2 Flow Rate FiO2 07/23/17 11:17 98.3 97 18 157/76 (103) 97 MDM Medical Decision Making Medical Screen Exam Complete: Yes Emergency Medical Condition: Yes Differential Diagnosis Hand pain, paresthesias, neuropraxia, nerve compression, other Narrative Course Medical decision making 19-year-old woman presents emerged from a pain hand to the emergency department hand pain and numbness. This is not clearly carpal tunnel. Patient seems very interested in getting a note for work she thinks this is a source of her symptoms. She has wrist braces that were given to her previously. This point recommend NSAIDs, bracing, outpatient follow-up. Diagnosis Primary Impression: Hand pain Departure Forms: Tests/Procedures, Work Release Enter return to work date: Jul 25, 2017 Additional Instructions: Take meloxicam daily. Do not combine with other NSAIDs such as ibuprofen, Aleve , or aspirin. Use wrist braces for the next 2 weeks as discussed. Follow-up with her primary doctor for repeat evaluation if symptoms persist. Med/Other Pt SpecificInfo: Prescription(s) given Scripts Meloxicam (Meloxicam) 15 Mg Tab 15 MG PO DAILY for Arthritis Pain, #14 TAB 0 Refills Prov: Kenny Byrd MD 07/23/17 Disposition: 01 DISCHARGE HOME Condition: Stable Kenny Byrd MD Jul 23, 2017 11:50
== END 2017-07-23 12:00 | disposition home or self-care (01) ==
LOC: PHEFT 11:13
DX: M79.641 Pain in right hand (principal); M79.642 Pain in left hand; R20.0 Anesthesia of skin
CPT/HCPCS: 99283